=== PATIENT | female | born 1995 | race African-American/Black ===

== ENCOUNTER 2021-12-12 16:34 | Emergency (ER) | payer BC ==
[2021-12-12 17:07] VITALS: RESP 16; TEMP 98.2
[2021-12-12] MEDS ORDERED: ONDANSETRON 4 MG/2 ML VIAL IVP STA (19:29)
[2021-12-12] MEDS ORDERED: SODIUM CHLORIDE 0.9% 1,000 ML IV STA ×2 (19:30)
--- NOTE | 2021-12-12 19:34 | ED ---
General Adult HPI - General Chief complaint: Nausea/Vomiting/Diarrhea Stated complaint: , nausea & vomiting Time Seen by Provider: 12/12/21 19:00 Source: patient, RN notes reviewed Mode of arrival: ambulatory Limitations: no limitations - History of Present Illness Initial comments: 26-year-old female presents to the emergency department for evaluation of nausea and vomiting. Patient states she is 8 weeks , LMP 10/21/2021, . Reports daily vomiting since she 7 weeks. Hasn't taken anything to treat her symptoms. Reports dizziness with position change. Was seen by her OB for initial evaluation. Denies fever, chills, headache, chest pain, shortness of breath, abdominal pain, diarrhea, dysuria or hematuria. No cramping, bleeding, or leaking of fluids. - Related Data Home Medications Medication Instructions Recorded Confirmed Acetaminophen Tab [Tylenol Tab] 1,000 mg PO Q6H PRN 12/12/21 12/12/21 Agm-Vvlu-Woudq Acid 1 cap PO DAILY 12/12/21 12/12/21 [-U Capsule (formulary)] Allergies Allergy/AdvReac Type Severity Reaction Status Date / Time No Known Allergies Allergy Verified 12/12/21 20:47 Review of Systems ROS Statement: Those systems with pertinent positive or pertinent negative responses have been documented in the HPI. ROS Other: All systems not noted in ROS Statement are negative. Past Medical History Past Medical History: No Reported History History of Any Multi-Drug Resistant Organisms: None Reported Past Surgical History: No Surgical Hx Reported Past Psychological History: No Psychological Hx Reported Smoking Status: Never smoker Past Alcohol Use History: None Reported Past Drug Use History: None Reported General Exam Limitations: no limitations (Well-developed, well-nourished female in no acute distress. Initial temperature 98.2, pulse 91, respiration 16, blood pressure 152/86, pulse ox 100% on room air.) General appearance: alert, in no apparent distress Eye exam: Present: normal appearance, PERRL. Absent: scleral icterus, conjunctival injection ENT exam: Present: normal oropharynx, mucous membranes moist Neck exam: Present: normal inspection, full ROM. Absent: tenderness, lymphadenopathy Respiratory exam: Present: normal lung sounds bilaterally. Absent: respiratory distress, wheezes, rales, rhonchi, stridor Cardiovascular Exam: Present: regular rate, normal rhythm, normal heart sounds. Absent: systolic murmur, diastolic murmur, rubs, gallop, clicks GI/Abdominal exam: Present: soft, normal bowel sounds. Absent: distended, tenderness, guarding, rebound, rigid Back exam: Absent: CVA tenderness (R), CVA tenderness (L) Neurological exam: Present: alert, oriented X3 Psychiatric exam: Present: normal affect, normal mood Skin exam: Present: warm, dry, intact, normal color Course Vital Signs 12/12/21 12/12/21 17:05 21:07 Temperature 98.2 F Pulse Rate 91 70 Respiratory 16 16 Rate Blood Pressure 152/86 125/88 O2 Sat by Pulse 100 99 Oximetry - Reevaluation(s) Reevaluation #1: 12/12/21 21:17 Upon reevaluation, patient is resting more comfortably reports significant improvement in her nausea. Discussed discharge plan and further follow-up. Patient verbalizes understanding and agrees with this plan. Medical Decision Making - Medical Decision Making 26-year-old female with no significant past medical history presents to the emergency department for evaluation of nausea and vomiting. Patient is 8 weeks , . Upon exam, patient appears to be feeling poorly though is not actively vomiting at this time. Physical exam findings are unremarkable. Mucous membranes are moist and patient is able to tolerate some sips of water. She is not experiencing any abdominal cramping or vaginal bleeding/leaking of fluids. IV access was obtained, patient was given fluids and Zofran for nausea. Laboratory studies were reviewed, patient is mildly hyponatremic with a sodium of 133. Urinalysis does show 1+ ketones. Patient is scheduled to see her DIRECTOR PUBLIC this week. Discussed vitamin B6 and Unisom combination for nausea, patient states this has been suggested to her, but she has yet implemented. Has tried chyna supplements with no significant improvement. Also suggested lemon or peppermint as these have both been shown to improve nausea in . Patient is encouraged to eat small, frequent meals and focus on hydration possibly supplementing with electrolyte solutions as able. She is instructed to follow-up with her DIRECTOR PUBLIC as scheduled. Return parameters were discussed in detail. Patient verbalizes understanding and agrees with this plan. Attending: Talia. - Lab Data Result diagrams: 12/12/21 19:30 12/12/21 19:30 Lab Results 12/12/21 12/12/21 12/12/21 Range/Units 19:30 19:30 19:30 WBC 11.2 H (3.8-10.6) k/uL RBC 4.72 (3.80-5.40) m/uL Hgb 12.9 (11.4-16.0) gm/dL Hct 40.1 (34.0-46.0) % MCV 85.0 (80.0-100.0) fL MCH 27.4 (25.0-35.0) pg MCHC 32.2 (31.0-37.0) g/dL RDW 14.5 (11.5-15.5) % Plt Count 287 (150-450) k/uL MPV 8.2 Neutrophils % 68 % Lymphocytes % 26 % Monocytes % 4 % Eosinophils % 1 % Basophils % 0 % Neutrophils # 7.6 (1.3-7.7) k/uL Lymphocytes # 2.9 (1.0-4.8) k/uL Monocytes # 0.5 (0-1.0) k/uL Eosinophils # 0.1 (0-0.7) k/uL Basophils # 0.0 (0-0.2) k/uL Sodium 133 L (137-145) mmol/L Potassium 3.9 (3.5-5.1) mmol/L Chloride 104 (98-107) mmol/L Carbon Dioxide 19 L (22-30) mmol/L Anion Gap 10 mmol/L BUN 8 (7-17) mg/dL Creatinine 0.61 (0.52-1.04) mg/dL Est GFR (CKD-EPI)AfAm >90 (>60 ml/min/1.73 sqM) Est GFR (CKD-EPI)NonAf >90 (>60 ml/min/1.73 sqM) Glucose 90 (74-99) mg/dL Calcium 9.0 (8.4-10.2) mg/dL Total Bilirubin 0.9 (0.2-1.3) mg/dL AST 22 (14-36) U/L ALT 13 (4-34) U/L Alkaline Phosphatase 64 (38-126) U/L Total Protein 7.0 (6.3-8.2) g/dL Albumin 3.9 (3.5-5.0) g/dL Urine Color Yellow Urine Appearance Clear (Clear) Urine pH 5.0 (5.0-8.0) Ur Specific [place] 1.026 (1.001-1.035) Urine Protein Negative (Negative) Urine Glucose (UA) Negative (Negative) Urine Ketones 1+ H (Negative) Urine Blood Negative (Negative) Urine Nitrite Negative (Negative) Urine Bilirubin Negative (Negative) Urine Urobilinogen <2.0 (<2.0) mg/dL Ur Leukocyte Esterase Negative (Negative) Disposition Clinical Impression: Nausea and vomiting during Disposition: HOME SELF-CARE Condition: Stable Instructions (If sedation given, give patient instructions): Nausea and Vomiting in (ED) Additional Instructions: Consider electrolyte solutions such as Gatorade or Powerade Eat small more frequent meals WITH less volume. Lemon, peppermint, and chyna are supplements known to help with nausea and vomiting in . Unasom and Vitamin B-6 is also a helpful combination, but most likely will cause drowsiness. Follow-up with your DIRECTOR PUBLIC for a recheck. Call the office in the morning to schedule an appointment. Return to the emergency department with any new, worsening, or concerning symptoms. Is patient prescribed a controlled substance at d/c from ED?: No Referrals: Nonstaff,Physician [Primary Care Provider] - 1-2 days Time of Disposition: 21:18
[2021-12-12 19:45] LABS: Appearance,Urine Clear (Clear); Bilirubin,Urine Negative (Negative); Blood,Urine Negative (Negative); Color,Urine Yellow; Glucose,Urine (UA) Negative (Negative); Ketones,Urine 1+ (Negative); Leukocyte Esterase,Urine Negative (Negative); Nitrite,Urine Negative (Negative); Protein,Urine Negative (Negative); Specific Gravity,Urine 1.026 (1.001-1.035); Urobilinogen,Urine <2.0 mg/dL (<2.0)
[2021-12-12 19:46] LABS: Basophils % (A) 0 %; Eosinophils # (A) 0.1 k/uL (0-0.7); Eosinophils % (A) 1 %; HCT 40.1 % (34.0-46.0); HGB 12.9 gm/dL (11.4-16.0); Lymphocytes # (A) 2.9 k/uL (1.0-4.8); Lymphocytes % (A) 26 %; MCH 27.4 pg (25.0-35.0); MCHC 32.2 g/dL (31.0-37.0); Mean Platelet Volume 8.2; Monocytes # (A) 0.5 k/uL (0-1.0); Monocytes % (A) 4 %; Neutrophils # (A) 7.6 k/uL (1.3-7.7); Neutrophils % (A) 68 %; Platelet Count 287 k/uL (150-450); RBC 4.72 m/uL (3.80-5.40); RDW 14.5 % (11.5-15.5); WBC 11.2 k/uL (3.8-10.6)
[2021-12-12 20:34] LABS: ALT 13 U/L (4-34); AST 22 U/L (14-36); African American GFR (CKD) >90 (>60 ml/min/1.73 sqM); Albumin 3.9 g/dL (3.5-5.0); Alkaline Phosphatase 64 U/L (38-126); Anion Gap 10 mmol/L; Blood Urea Nitrogen 8 mg/dL (7-17); Carbon Dioxide 19 mmol/L (22-30); Chloride 104 mmol/L (98-107); Glucose 90 mg/dL (74-99); Non-African American GFR(CKD) >90 (>60 ml/min/1.73 sqM); Potassium 3.9 mmol/L (3.5-5.1); Sodium 133 mmol/L (137-145); Total Bilirubin 0.9 mg/dL (0.2-1.3)
[2021-12-12] MEDS ORDERED: ONDANSETRON 4 MG ODT STARTER PACK 2 TAB BTL PO STA (21:16)
[2021-12-12 21:23] VITALS: BP 125/88; PULSE 70
== END 2021-12-12 21:49 | disposition home or self-care (01) ==
LOC: EC 16:34
DX: O21.9 Vomiting of pregnancy, unspecified (principal); Z3A.08 8 weeks gestation of pregnancy
CPT/HCPCS: 36415; 80053; 85025; 81003; 99284; 96374; 96361; J2405

== ENCOUNTER 2022-01-08 14:14 | Emergency (ER) | payer BC ==
[2022-01-08 14:37] VITALS: BP 152/92; PULSE 131; RESP 18; TEMP 100
--- NOTE | 2022-01-08 15:17 | ED ---
Female Urogenital HPI - General Chief complaint: Vaginal Bleeding Stated complaint: 11 weeks Preg., Bleeding Time Seen by Provider: 01/08/22 14:59 Source: patient, family, RN notes reviewed Mode of arrival: ambulatory Limitations: no limitations - History of Present Illness Initial comments: This is a 26-year-old female who presents to emergency department for vaginal bleeding. One hour before coming to the emergency department she had what she describes as a period. This occurred only once and has since discontinued. Denies any pain with bleeding. She saw her statuary painter 2 days ago, and at that point, there were no problems with the . Early on in the , she had light brown discharge, but has otherwise not had any issues with bleeding. She has not yet had a ultrasound. Denies any fevers, chills, burning with urination, nausea, vomiting, or otherwise feeling ill. She has an appointment tomorrow for lab work. Complaint: vaginal bleeding Patient : Yes Number of weeks : 11 - Related Data Home Medications Medication Instructions Recorded Confirmed Acetaminophen Tab [Tylenol Tab] 1,000 mg PO Q6H PRN 12/12/21 01/08/22 Dsg-Hqxw-Jssir Acid 1 cap PO DAILY 12/12/21 01/08/22 [-U Capsule (formulary)] Allergies Allergy/AdvReac Type Severity Reaction Status Date / Time No Known Allergies Allergy Verified 01/08/22 15:42 Review of Systems ROS Statement: Those systems with pertinent positive or pertinent negative responses have been documented in the HPI. ROS Other: All systems not noted in ROS Statement are negative. Constitutional: Denies: fever, chills ENT: Denies: ear pain, throat pain Respiratory: Denies: cough Cardiovascular: Denies: chest pain Gastrointestinal: Denies: abdominal pain, nausea, vomiting, diarrhea Genitourinary: Reports: other (vaginal bleeding). Denies: urgency, dysuria Skin: Denies: rash Neurological: Denies: headache Past Medical History Past Medical History: No Reported History History of Any Multi-Drug Resistant Organisms: None Reported Past Surgical History: No Surgical Hx Reported Past Psychological History: No Psychological Hx Reported Smoking Status: Never smoker Past Alcohol Use History: None Reported Past Drug Use History: None Reported General Exam Limitations: no limitations General appearance: alert, in no apparent distress Head exam: Present: atraumatic, normocephalic, normal inspection Neck exam: Present: normal inspection. Absent: tenderness, meningismus, lymphadenopathy Respiratory exam: Present: normal lung sounds bilaterally. Absent: respiratory distress, wheezes, rales, rhonchi, stridor Cardiovascular Exam: Present: regular rate, normal rhythm, normal heart sounds. Absent: systolic murmur, diastolic murmur, rubs, gallop, clicks GI/Abdominal exam: Present: soft, normal bowel sounds Expanded Female exam: Absent: tissue present in vagina External exam: Present: normal Speculum exam: Present: cervical OS closed, other (minimal blood in the vaginal vault) Neurological exam: Present: alert, oriented X3, CN II-XII intact Psychiatric exam: Present: normal affect, normal mood Skin exam: Present: warm, dry, intact, normal color. Absent: rash Course Vital Signs 01/08/22 14:34 Temperature 100 F H Pulse Rate 131 H Respiratory 18 Rate Blood Pressure 152/92 O2 Sat by Pulse 99 Oximetry Medical Decision Making - Medical Decision Making This is a 26-year-old female who presents to the emergency department for vaginal bleeding. Vaginal ultrasound revealed a viable intrauterine with a heart rate of 169 bpm. Patient had a temperature fluctuating between 99- 100F. While this is not necessarily considered febrile and it may be due to her stressful situation, she was given 650 mg of Tylenol to be safe. Patient's blood type is O+ and no rhogam is indicated. She is advised to follow up with her lab work as scheduled tomorrow and call her statuary painter's office for a follow up appointment. Bleeding due to subchorionic hematoma. Bleeding precautions discussed including resting, avoiding strenuous activity, avoiding sexual intercourse, tampons, and douching. Return precautions reviewed in depth, the patient is instructed to return to the emergency department with any new, worsening, or concerning symptoms. Patient verbalized understanding. This case was discussed in detail with the attending ED physician. Presentation, findings, and treatment plan discussed in detail as well. - Lab Data Result diagrams: 01/08/22 15:11 01/08/22 15:11 Lab Results 01/08/22 01/08/22 01/08/22 Range/Units 15:11 15:11 15:11 WBC 11.0 H (3.8-10.6) k/uL RBC 4.95 (3.80-5.40) m/uL Hgb 13.3 (11.4-16.0) gm/dL Hct 43.3 (34.0-46.0) % MCV 87.5 (80.0-100.0) fL MCH 27.0 (25.0-35.0) pg MCHC 30.8 L (31.0-37.0) g/dL RDW 13.7 (11.5-15.5) % Plt Count 279 (150-450) k/uL MPV 8.0 Neutrophils % 75 % Lymphocytes % 18 % Monocytes % 5 % Eosinophils % 1 % Basophils % 0 % Neutrophils # 8.3 H (1.3-7.7) k/uL Lymphocytes # 1.9 (1.0-4.8) k/uL Monocytes # 0.5 (0-1.0) k/uL Eosinophils # 0.1 (0-0.7) k/uL Basophils # 0.0 (0-0.2) k/uL Sodium 134 L (137-145) mmol/L Potassium 4.1 (3.5-5.1) mmol/L Chloride 104 (98-107) mmol/L Carbon Dioxide 21 L (22-30) mmol/L Anion Gap 9 mmol/L BUN 9 (7-17) mg/dL Creatinine 0.66 (0.52-1.04) mg/dL Est GFR (CKD-EPI)AfAm >90 (>60 ml/min/1.73 sqM) Est GFR (CKD-EPI)NonAf >90 (>60 ml/min/1.73 sqM) Glucose 96 (74-99) mg/dL Calcium 9.1 (8.4-10.2) mg/dL Total Bilirubin 0.9 (0.2-1.3) mg/dL AST 24 (14-36) U/L ALT 12 (4-34) U/L Alkaline Phosphatase 60 (38-126) U/L Total Protein 7.4 (6.3-8.2) g/dL Albumin 4.0 (3.5-5.0) g/dL HCG, Quant 46038.9 mIU/mL Urine Color Light Yellow Urine Appearance Clear (Clear) Urine pH 5.5 (5.0-8.0) Ur Specific [place] 1.005 (1.001-1.035) Urine Protein Negative (Negative) Urine Glucose (UA) Negative (Negative) Urine Ketones Negative (Negative) Urine Blood Small H (Negative) Urine Nitrite Negative (Negative) Urine Bilirubin Negative (Negative) Urine Urobilinogen <2.0 (<2.0) mg/dL Ur Leukocyte Esterase Negative (Negative) Urine RBC <1 (0-5) /hpf Urine WBC 1 (0-5) /hpf Ur Squamous Epith Cells 1 (0-4) /hpf Urine Bacteria Rare H (None) /hpf Urine Mucus Rare H (None) /hpf Coronavirus (PCR) (Not Detectd) Influenza Type A RNA (Not Detectd) Influenza Type B (PCR) (Not Detectd) Blood Type Blood Type Recheck Bld Type Recheck Status 01/08/22 01/08/22 01/08/22 Range/Units 15:11 15:11 15:16 WBC (3.8-10.6) k/uL RBC (3.80-5.40) m/uL Hgb (11.4-16.0) gm/dL Hct (34.0-46.0) % MCV (80.0-100.0) fL MCH (25.0-35.0) pg MCHC (31.0-37.0) g/dL RDW (11.5-15.5) % Plt Count (150-450) k/uL MPV Neutrophils % % Lymphocytes % % Monocytes % % Eosinophils % % Basophils % % Neutrophils # (1.3-7.7) k/uL Lymphocytes # (1.0-4.8) k/uL Monocytes # (0-1.0) k/uL Eosinophils # (0-0.7) k/uL Basophils # (0-0.2) k/uL Sodium (137-145) mmol/L Potassium (3.5-5.1) mmol/L Chloride (98-107) mmol/L Carbon Dioxide (22-30) mmol/L Anion Gap mmol/L BUN (7-17) mg/dL Creatinine (0.52-1.04) mg/dL Est GFR (CKD-EPI)AfAm (>60 ml/min/1.73 sqM) Est GFR (CKD-EPI)NonAf (>60 ml/min/1.73 sqM) Glucose (74-99) mg/dL Calcium (8.4-10.2) mg/dL Total Bilirubin (0.2-1.3) mg/dL AST (14-36) U/L ALT (4-34) U/L Alkaline Phosphatase (38-126) U/L Total Protein (6.3-8.2) g/dL Albumin (3.5-5.0) g/dL HCG, Quant mIU/mL Urine Color Urine Appearance (Clear) Urine pH (5.0-8.0) Ur Specific [place] (1.001-1.035) Urine Protein (Negative) Urine Glucose (UA) (Negative) Urine Ketones (Negative) Urine Blood (Negative) Urine Nitrite (Negative) Urine Bilirubin (Negative) Urine Urobilinogen (<2.0) mg/dL Ur Leukocyte Esterase (Negative) Urine RBC (0-5) /hpf Urine WBC (0-5) /hpf Ur Squamous Epith Cells (0-4) /hpf Urine Bacteria (None) /hpf Urine Mucus (None) /hpf Coronavirus (PCR) Not Detected (Not Detectd) Influenza Type A RNA Not Detected (Not Detectd) Influenza Type B (PCR) Not Detected (Not Detectd) Blood Type O Positive Blood Type Recheck No Previous Record Bld Type Recheck Status ABR ONLY - Radiology Data Radiology results: report reviewed, image reviewed Disposition Clinical Impression: Subchorionic hematoma in first trimester Disposition: HOME SELF-CARE Instructions (If sedation given, give patient instructions): Non-Threatening First Trimester Vaginal Bleed (ED) Additional Instructions: Return to the emergency department with any new, worsening, or concerning symptoms. Get plenty of rest, drink fluids, avoid strenuous activity, sexual intercourse, using tampons, or douching. Contact your statuary painter's office tomorrow for a follow-up appointment. Follow-up with your primary care provider in 1 to 2 days. Is patient prescribed a controlled substance at d/c from ED?: No Referrals: Nonstaff,Physician [REFERRING] - 1-2 days
[2022-01-08 15:34] LABS: Basophils % (A) 0 %; Eosinophils # (A) 0.1 k/uL (0-0.7); Eosinophils % (A) 1 %; HCT 43.3 % (34.0-46.0); HGB 13.3 gm/dL (11.4-16.0); Lymphocytes # (A) 1.9 k/uL (1.0-4.8); Lymphocytes % (A) 18 %; MCHC 30.8 g/dL (31.0-37.0); MCV 87.5 fL (80.0-100.0); Monocytes # (A) 0.5 k/uL (0-1.0); Monocytes % (A) 5 %; Neutrophils # (A) 8.3 k/uL (1.3-7.7); Neutrophils % (A) 75 %; Platelet Count 279 k/uL (150-450); RBC 4.95 m/uL (3.80-5.40); RDW 13.7 % (11.5-15.5)
--- NOTE | 2022-01-08 15:39 | US ---
EXAMINATION TYPE: Transabdominal DATE OF EXAM: 01/08/2022 3:27 PM COMPARISON: NONE CLINICAL HISTORY: Vaginal bleeding. Spotting x 1 day EXAM PERFORMED: Transabdominal (TA) EXAM MEASUREMENTS: GESTATIONAL AGE / DATING Physician Established: (11 weeks/2 days) EDC: 07/28/2022 Dates by LMP: LMP unknown Dates by First Scan: No previous this is first scan Dates by Current Scan for: (11 weeks/5 days) EDC: 07/25/2022 MATERNAL ANATOMY Uterus: 15.3 x 6.8 x 8.0cm Right Ovary: 2.3 x 1.5 x 2.3cm Left Ovary: 2.7 x 1.8 x 2.5cm Post CDS / Adnexa: wnl Presence of free fluid: no Presence of corpus luteal cyst: not seen Presence of subchorionic bleed: 1.9 x 0.8 x 2.2cm inferior to gestational sac GESTATION / SURVEY CRL: 4.9cm (11 weeks/5 days) Yolk Sac (normal less than 6mm): 3.8mm Heart Rate: 169 bpm Rhythm: Normal IUP: Viable IUP Nuchal Translucency 10-14wks (normal less than 3mm): 1.6mm IMPRESSION: 1. Single intrauterine gestation estimated at 11 weeks 5 days gestation based on crown-rump length. C ardiac activity measures 169 beats minute was observed. The study.
[2022-01-08 15:42] LABS: ALT 12 U/L (4-34); AST 24 U/L (14-36); African American GFR (CKD) >90 (>60 ml/min/1.73 sqM); Alkaline Phosphatase 60 U/L (38-126); Anion Gap 9 mmol/L; Blood Urea Nitrogen 9 mg/dL (7-17); Calcium 9.1 mg/dL (8.4-10.2); Carbon Dioxide 21 mmol/L (22-30); Chloride 104 mmol/L (98-107); Glucose 96 mg/dL (74-99); Non-African American GFR(CKD) >90 (>60 ml/min/1.73 sqM); Potassium 4.1 mmol/L (3.5-5.1); Sodium 134 mmol/L (137-145); Total Bilirubin 0.9 mg/dL (0.2-1.3); Total Protein 7.4 g/dL (6.3-8.2)
[2022-01-08] MEDS ORDERED: ACETAMINOPHEN TAB 325 MG TAB PO STA (15:50)
[2022-01-08 16:55] LABS: Appearance,Urine Clear (Clear); Bacteria,Urine Rare /hpf; Bilirubin,Urine Negative (Negative); Blood,Urine Small (Negative); Color,Urine Light Yellow; Glucose,Urine (UA) Negative (Negative); Ketones,Urine Negative (Negative); Leukocyte Esterase,Urine Negative (Negative); Mucus,Urine Rare /hpf; Nitrite,Urine Negative (Negative); PH, Urine 5.5 (5.0-8.0); Protein,Urine Negative (Negative); RBC,Urine <1 /hpf (0-5); Specific Gravity,Urine 1.005 (1.001-1.035); Squamous Epithelial Cell,Urine 1 /hpf (0-4); Urobilinogen,Urine <2.0 mg/dL (<2.0); WBC,Urine 1 /hpf (0-5)
[2022-01-08 16:59] LABS: HCG,Quantitative Serum 67867.9 mIU/mL
== END 2022-01-08 17:17 | disposition home or self-care (01) ==
LOC: EC 14:14
DX: O46.91 Antepartum hemorrhage, unspecified, first trimester (principal); Z3A.11 11 weeks gestation of pregnancy
CPT/HCPCS: 36415; 76801; 80053; 81001; 84702; 85025; 86900; 86901; 87502; 87635; 99284

== ENCOUNTER → 2022-01-23 | Outpatient (CLI) | payer BC, OTHER ==
--- NOTE | 2022-01-23 14:28 | US ---
EXAMINATION TYPE: Transabdominal DATE OF EXAM: 01/23/2022 1:46 PM COMPARISON: Ultrasound 15 days ago. CLINICAL HISTORY: O36.61X0 LARGE FOR DATES. Large for dates. EXAM PERFORMED: Transabdominal (TA) EXAM MEASUREMENTS: GESTATIONAL AGE / DATING Physician Established: (13 weeks/3 days) EDC: 07/28/2022 Dates by LMP: (13 weeks/3 days) EDC: 07/28/2022 Dates by First Scan: (13 weeks/3 days) EDC: 07/28/2022 Dates by Current Scan for: (13 weeks/6 days) EDC: 07/25/2022 MATERNAL ANATOMY Uterus: 16.0 x 9.4 x 9.9 cm Hypoechoic area seen measuring 4.5 x 3.5 x 4.1 cm. Right Ovary: 2.8 x 1.5 x 2.7 cm Left Ovary: 3.5 x 2.1 x 2.9 cm Post CDS / Adnexa: wnl Presence of free fluid: no Presence of corpus luteal cyst: no Presence of subchorionic bleed: no GESTATION / SURVEY CRL: 7.77 cm (13 weeks/6 days) Heart Rate: 143 bpm Rhythm: Normal IUP: Viable IUP Beta HcG (if available): Not available at this time Single live intrauterine gestation is redemonstrated. Satisfactory interval growth noted. No free flu id in the pelvis. Both ovaries redemonstrated without suspicious extra ovarian adnexal mass. IMPRESSION: As above.
== END | disposition home or self-care (01) ==
LOC: RADUSWWP 13:15
PROVIDERS: ATTEND Obstetrics & Gynecology Obstetrics
DX: O36.61X0 Maternal care for excessive fetal growth, first trimester, not applicable or unspecified (principal); Z3A.13 13 weeks gestation of pregnancy
CPT/HCPCS: 76801

== ENCOUNTER → 2022-05-06 | Outpatient (CLI) | payer OTHER ==
[2022-05-06 18:23] LABS: HCT 35.4 % (37.2-46.3); HGB 11.4 g/dL (12.0-15.0); MCH 27.5 pg (27.0-32.0); MCHC 32.2 g/dL (32.0-37.0); MCV 85.5 fL (80.0-97.0); Mean Platelet Volume 11.6 fL (9.5-12.2); NRBC Per 100 WBC 0 /100 WBCS (0.0-0.0); Platelet Count 260 X 10*3/uL (140-440); RBC 4.14 X 10*6/uL (4.10-5.20); RDW 13.3 % (11.5-14.5); WBC 9.89 X 10*3/uL (4.50-10.00)
== END | disposition home or self-care (01) ==
LOC: LABWHC1 10:30
PROVIDERS: ATTEND Obstetrics & Gynecology Obstetrics
DX: Z36.9 Encounter for antenatal screening, unspecified (principal)
CPT/HCPCS: 36415; 82950; 85027

== ENCOUNTER 2022-07-15 03:33 | Outpatient (CLI) | payer OTHER ==
[2022-07-15 05:13] VITALS: BP 122/70; PULSE 92; RESP 18; TEMP 97.3
--- NOTE | 2022-07-22 19:50 | P.MSEPDOC ---
Presenting Problems - Arrival Data Date of Arrival on Unit: 07/15/22 Time of Arrival on Unit: 03:27 Mode of Transport: Wheelchair - Complaint OB-Reason for Admission/Chief Complaint: Possible Onset of Labor, Pain Medical History - Information : 1 Para: 0 Term: 0 : 0 Abortions: Spontaneous or Elective: 0 Number of Living Children: 0 - Gestational Age Gestational Age by HORTENCIA (wks/days): 38 Weeks and 1 Days - History Comment: Trichimoniasis Review of Systems - Review of Systems Constitutional: No problems Breast: No problems ENT: No problems Cardiovascular: No problems Respiratory: No problems Gastrointestinal: No problems Genitourinary: No problems Musculoskeletal: No problems Neurological: No problems Skin: No problems Vital Signs - Temperature Temperature: 97.3 F Temperature Source: Oral - Pulse Pulse Oximetery Pulse Rate: 92 Pulse Assessment Method: Pulse Oximetry - Respirations Respiratory Rate: 18 Oxygen Delivery Method: Room Air O2 Sat by Pulse Oximetry: 99 - Blood Pressure Right Arm Blood Pressure: 122/70 Blood Pressure Mean: 87 Blood Pressure Source: Automatic Cuff Medical Screen Scoring - Cervical Exam Dilation (cm): 1 Effacement (%): 50 Station: -2 Membranes: Intact - Uterine Contractions Frequency From (mins): 2 Frequency To (mins): 6 Duration From (seconds): 60 Duration To (seconds): 80 Intensity: Strong Resting: Soft to palpation - Assessment - Baby A Baseline FHR: 145 Heart Rate - NICHD Category: Category I (Normal) NST: Reactive Physician Notification - Physician Notified Physician Notified Date: 07/15/22 Physician Notified Time: 04:50 Physician: Stefani Chavez New Order Received: Yes - Notification Comment Comment: Called Dr. Chavez and reported on patients c/o contractions since 1999 on 07/14/22. GA 38.5, HORTENCIA 07/28/2022, . Pain with contractions 05/07. FHR 145 with accels and reactive NST. Contractions 2-6 minutes apart 60-80 seconds. Cervical exam is 1/50%/-2. Orders to discharge patient at this time. Maternal Triage Index - Maternal Triage Index Presenting for scheduled procedure w/no complaint: No - Stat/Priority 1 Stat Priority 1: No - Urgent/Priority 2 Urgent Priority 2: No - Prompt/Priority 3 Prompt Priority 3: No - Non-Urgent/Priority 4 Non-Urgent Priority 4: Yes Criteria Met for Priority 4: Called Dr. Chavez and reported on patients c/o contractions since 1999 on 07/14/22. GA 38.5, HORTENCIA 07/28/2022, . Pain with contractions 05/07. FHR 145 with accels and reactive NST. Contractions 2-6 minutes apart 60-80 seconds. Cervical exam is 1/50%/-2. Orders to discharge patient at this time. Disposition - Disposition OB Disposition: Discharge to home Discharge Date: 07/15/22 Discharge Time: 04:55 I agree with the RN Medical Screening Exam: Yes Physician's MSE Comment: I have neither seen nor examined the patient Case reviewed; plan agreed upon as documented in EMR&OBIX.: Yes Diagnosis: RELATED CONDITIONS, UNSPECIFIED, THIRD TRIMESTER
== END 2022-07-15 05:00 | disposition home or self-care (01) ==
LOC: FBPOP 03:33
PROVIDERS: ATTEND Obstetrics & Gynecology
DX: O26.93 Pregnancy related conditions, unspecified, third trimester (principal); Z3A.38 38 weeks gestation of pregnancy
CPT/HCPCS: 59025; G0463; 99213

== ENCOUNTER 2022-07-22 11:55 | Inpatient (IN) | payer OTHER ==
[2022-07-22] MEDS ORDERED: ACETAMINOPHEN IV (For NPO) 1,000 MG in EMPTY BAG 1 BAG IVPB STA (13:01)
[2022-07-22] MEDS: LACTATED RINGERS 1,000 ML IV SCH ×2 (13:20→16:32)
[2022-07-22] MEDS ORDERED: AMPICILLIN 2,000 MG in SODIUM CHLORIDE 0.9% 100 ML IVPB STA (15:17)
[2022-07-22] MEDS ORDERED: OXYTOCIN 10 UNIT/ML 1 ML VIAL IM PRN (15:17)
[2022-07-22] MEDS ORDERED: TERBUTALINE 1 MG/ML VIAL SQ PRN (15:17)
[2022-07-22] MEDS ORDERED: LIDOCAINE 0.5% (PF) 5 MG/ML (50 ML SDV) SQ PRN (15:17)
[2022-07-22] MEDS ORDERED: METHYLERGONOVINE 0.2 MG/ML 1 ML AMP IM PRN (15:17)
[2022-07-22] MEDS ORDERED: CARBOPROST TROMETHAMINE 250 MCG/ML 1 ML AMP IM PRN (15:17)
[2022-07-22 15:29] LABS: Basophils % (A) 0 %; Eosinophils % (A) 0 %; HCT 38.5 % (34.0-46.0); HGB 12.7 gm/dL (11.4-16.0); Lymphocytes % (A) 21 %; MCH 27.6 pg (25.0-35.0); MCV 83.5 fL (80.0-100.0); Monocytes # (A) 0.5 k/uL (0-1.0); Monocytes % (A) 5 %; Neutrophils # (A) 7.2 k/uL (1.3-7.7); Neutrophils % (A) 73 %; Platelet Count 251 k/uL (150-450); RBC 4.61 m/uL (3.80-5.40); RDW 13.3 % (11.5-15.5); WBC 9.8 k/uL (3.8-10.6)
[2022-07-22] MEDS ORDERED: OXYTOCIN 30 UNITS/500 ML NS 30 UNIT in SALINE 1 500ML.BAG IV SCH (15:30)
[2022-07-22] MEDS: BUTORPHANOL 1 MG/ML 1 ML VIAL IV PRN ×2 (16:07→18:43)
[2022-07-22] MEDS: AMPICILLIN 1,000 MG in SODIUM CHLORIDE 0.9% 50 ML IVPB SCH (20:41)
[2022-07-22] MEDS ORDERED: ROPIVACAINE 100 MG, fentaNYL (PF). 200 MCG in SODIUM CHLORIDE 0.9% 76 ML EPIDURAL ONE (21:12)
[2022-07-23] MEDS: AMPICILLIN 1,000 MG in SODIUM CHLORIDE 0.9% 50 ML IVPB SCH ×3 (03:32→20:18)
[2022-07-23] MEDS: LACTATED RINGERS 1,000 ML IV SCH ×6 (04:40→20:18)
--- NOTE | 2022-07-23 08:50 | P.HPOB ---
History of Present Illness H&P Date: 07/22/22 Chief Complaint: IUP at 39 weeks, labor This is a 26-year-old 1 para 0 that presented to the office for routine visit. Patient states that she was up throughout the night with complaints of coming and going back pain. Patient on exam was noted to be gato. Patient was sent to labor and delivery for observation. Initially patient was noted to be 1/70/-3 station, bulging bag of water was appreciated. Well on labor and delivery after multiple hours she was noted to change to 3 cm. Patient was admitted at that time. Patient was receiving routine care with myself which is been essentially uncomplicated. Patient did note at the beginning of care a history of hypertension although she was not on medications and has had normal blood pressures throughout the . On bloodwork this patient has a blood type of O+, rubella status immune, hep Dee surface antigen negative, HIV negative, RPR is nonreactive, gr oup beta strep cultures were positive. Review of Systems Constitutional: Denies chills, Denies fatigue, Denies fever Ears, nose, mouth and throat: Denies headache Cardiovascular: Reports leg edema Respiratory: Denies dyspnea Gastrointestinal: Denies constipation, Denies diarrhea, Denies nausea, Denies vomiting Genitourinary: Reports Past Medical History Past Medical History: No Reported History History of Any Multi-Drug Resistant Organisms: None Reported Past Surgical History: No Surgical Hx Reported Past Psychological History: No Psychological Hx Reported Smoking Status: Current every day smoker Past Alcohol Use History: None Reported Past Drug Use History: None Reported Medications and Allergies Home Medications Medication Instructions Recorded Confirmed Type Vit No.179/Iron/Folic 1 each PO DAILY 07/22/22 07/22/22 History [ Tablet] Allergies Allergy/AdvReac Type Severity Reaction Status Date / Time No Known Allergies Allergy Verified 07/15/22 03:40 Exam Osteopathic Statement: *. No significant issues noted on an osteopathic structural exam other than those noted in the History and Physical/Consult. 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 Patient has noted nonlabored breathing, heart has a regular rate and rhythm, abdomen is gravid, on cervical exam per RN she was 3/70/-2 station, heart tones returned be category 1 and she is gato every 3-5 minutes. Results Result Diagrams: 07/22/22 15:17 Assessment and Plan (1) Term Current Visit: Yes Status: Acute Code(s): Z34.90 - ENCNTR FOR SUPRVSN OF NORMAL , UNSP, UNSP TRIMESTER SNOMED Code(s): 12365746 (2) Active labor Current Visit: Yes Status: Acute Code(s): PSS7566 - SNOMED Code(s): 652831105 Plan: Patient is admitted to labor and delivery for active labor. Expectant management is discussed. Given group beta strep positive cultures antibiotic prophylaxis with ampicillin was begun. Options for analgesia are discussed including Stadol, nitrous, epidural. Patient does wish epidural placement when appropriate.
[2022-07-23] MEDS ORDERED: BENZOCAINE/MENTHOL SPRAY 1 GM/SPRAY AEROSOL TOPICAL PRN (08:52)
[2022-07-23] MEDS ORDERED: ZOLPIDEM 5 MG TAB PO PRN (08:52)
[2022-07-23] MEDS ORDERED: HYDROCORTISONE 2.5% RECTAL CREAM 30 GM TUBE RECTAL PRN (08:52)
[2022-07-23] MEDS ORDERED: SIMETHICONE 80 MG CHEWABLE PO PRN (08:52)
[2022-07-23] MEDS ORDERED: diphenhydrAMINE 25 MG CAP PO PRN (08:52)
[2022-07-23] MEDS ORDERED: diphenhydrAMINE 50 MG CAP PO PRN (08:52)
[2022-07-23] MEDS ORDERED: LANOLIN CREAM 5 GM TUBE TOPICAL PRN (08:52)
[2022-07-23] MEDS ORDERED: diphenhydrAMINE 50 MG/ML 1 ML VIAL IVP PRN ×2 (08:52)
--- NOTE | 2022-07-23 08:52 | P.PROBDLV ---
Vaginal Delivery Note - . Vaginal Delivery Note: Findings were viable male delivered at 821, weight of 6 lbs. 11 oz., Apgars of 8 and 9 at one and 5 minutes respectively. 26-year-old 1 para 0 at 39 weeks of gestation presented yesterday afternoon with complaints of regular painful contractions. Patient was seen in the office and noted to be gato. Patient was then sent to OB triage for further evaluation. Patient was then deemed to be in labor with cervical change. Patient was admitted with expectant management. Patient did well overnight eventually getting an epidural. With movement the epidural did fall out and anesthesia declined replacement. Patient did opt for nitrous treatment thereafter. Patient had spontaneous rupture of membranes clear in nature on 5:30 AM. Patient made progress toward anterior lip. At that time Pitocin augmentation of labor was begun and she was anterior lip for greater than 1 hour. Patient then progressed to complete and with excellent maternal effort the infant was brought down to a presentation. With additional pushes patient delivered the head followed by the anterior/posterior shoulder and body. A loose nuchal cord was delivered through Spontaneous cry and the was placed on the maternal abdomen. After two-minute delayed the umbilical cords doubly clamped and cut. The placenta was then delivered spontaneously intact with a three-vessel cord being noted. On inspection the patient's vaginal vault a first-degree vaginal laceration was appreciated in addition to a left labial. These were instilled with lidocaine and repaired in the usual fashion. The uterus was noted be firm and below the umbilicus after drainage of bladder for approximately 100 mL of clear yellow urine. Estimated blood loss 200 mL. All counts were noted correct 2 at the end of the delivery. Patient and infant tolerated delivery well and are resting comfortably.
[2022-07-23] MEDS: BUTORPHANOL 1 MG/ML 1 ML VIAL IV PRN (08:54)
[2022-07-23] MEDS ORDERED: OXYTOCIN 30 UNITS/500 ML NS 30 UNIT in SALINE 1 500ML.BAG IV SCH (09:00)
[2022-07-23] MEDS: IBUPROFEN 600 MG TAB PO SCH ×3 (09:35→23:33)
[2022-07-23] MEDS: SENNOSIDES-DOCUSATE SODIUM 1 EACH TAB PO SCH (20:17)
[2022-07-24] MEDS: LACTATED RINGERS 1,000 ML IV SCH ×11 (00:21→20:16)
[2022-07-24] MEDS: AMPICILLIN 1,000 MG in SODIUM CHLORIDE 0.9% 50 ML IVPB SCH (00:28)
[2022-07-24] MEDS: ACETAMINOPHEN TAB 325 MG TAB PO PRN ×3 (03:15→21:12)
[2022-07-24] MEDS: IBUPROFEN 600 MG TAB PO SCH ×4 (05:12→22:41)
[2022-07-24] MEDS: SENNOSIDES-DOCUSATE SODIUM 1 EACH TAB PO SCH ×2 (08:01→20:13)
--- NOTE | 2022-07-24 08:54 | P.DS ---
Providers Date of admission: 07/22/22 14:58 Expected date of discharge: 07/24/22 Attending physician: Maine Kaye Primary care physician: Stated None - Discharge Diagnosis(es) (1) Term Current Visit: Yes Status: Acute (2) Active labor Current Visit: Yes Status: Acute (3) Status post normal vaginal delivery Current Visit: Yes Status: Acute (4) Obstetric vaginal laceration with first degree perineal laceration Current Visit: Yes Status: Acute Hospital Course: This is a 26-year-old 1 para 0 that was seen in the office for routine visit. Patient was complaining of contractions to the night and on exam was noted to be gato. Patient was sent to labor and delivery for further evaluation. Patient was then deemed to be in labor and admitted. Patient did well overnight eventually getting epidural. Patient states her epidural fell out at one point during labor, soon afterwards she had spontaneous rupture of membranes clear in nature at 5:30 AM. Patient made progress toward anterior lip. Patient was noted to have spacing of contractions therefore Pitocin augmentation of labor was begun. Patient progressed to complete and with excellent maternal effort had a normal spontaneous vaginal delivery of a viable male at 821 on 1026. Weight of 6 lbs. 11 oz. Patient did sustain a first-degree vaginal laceration which was repaired in usual fashion. Patient has done well . She is ambulating and voiding without difficulty. She is tolerating a regular diet without nausea or vomiting. She states her pain is well-controlled. She denies concerns and would like discharge home today. Patient Condition at Discharge: Good Plan - Discharge Summary New Discharge Prescriptions: No Action Vit No.179/Iron/Folic [ Tablet] 1 each PO DAILY Discharge Medication List Vit No.179/Iron/Folic [ Tablet] 1 each PO DAILY 07/22/22 [History] Follow up Appointment(s)/Referral(s): Maine Kaye DO [Doctor of Osteopathic Medicine] - 4 Weeks Patient Instructions/Handouts: Vaginal Delivery (GEN), Vaginal Delivery (DC) Discharge Disposition: HOME SELF-CARE
[2022-07-25 01:28] VITALS: TEMP 98.1
[2022-07-25] MEDS: IBUPROFEN 600 MG TAB PO SCH ×2 (03:03→09:14)
[2022-07-25 09:09] VITALS: BP 128/73; PULSE 61; RESP 16
[2022-07-25] MEDS: SENNOSIDES-DOCUSATE SODIUM 1 EACH TAB PO SCH (09:09)
--- NOTE | 2022-07-25 09:19 | P.PNOBGVD ---
Subjective - Subjective Principal diagnosis: day 2, normal spontaneous vaginal delivery Interval history: Patient is feeling well, she ended up staying an additional day secondary to jaundice diagnosis of . She is ambulating and voiding without difficulty. Pain is well-controlled. Patient reports: Reports appetite normal, Reports voiding normally, Reports pain well controlled, Reports ambulating normally : doing well (Awaiting a bilirubin level at 2 PM this afternoon) Objective - Latest Vital Signs Latest vital signs: Vital Signs Temp Pulse Resp BP Pulse Ox 07/25/22 08:00 98.1 F 61 16 128/73 98 07/25/22 00:00 98.1 F 66 18 118/82 98 07/24/22 16:00 97.9 F 76 16 125/74 Intake and Output 07/24/22 07/25/22 07/25/22 22:59 06:59 14:59 Intake Total 540 Balance 540 Intake: IV 540 Other: Voiding Method Toilet # Voids 2 - Exam Extremities: Present: normal, edema Abdomen: Present: normal appearance, soft Uterus: Present: normal, firm Assessment and Plan (1) Term Current Visit: Yes Status: Acute Code(s): Z34.90 - ENCNTR FOR SUPRVSN OF NORMAL , UNSP, UNSP TRIMESTER SNOMED Code(s): 02085481 (2) Active labor Current Visit: Yes Status: Acute Code(s): [id number] - SNOMED Code(s): 918356711 (3) Status post normal vaginal delivery Current Visit: Yes Status: Acute Code(s): EQH7618 - SNOMED Code(s): 448130149 (4) Obstetric vaginal laceration with first degree perineal laceration Current Visit: Yes Status: Acute Code(s): O70.0 - FIRST DEGREE PERINEAL LACERATION DURING DELIVERY SNOMED Code(s): 316512998 Plan: 26-year-old G1 now P1 status post normal spontaneous vaginal delivery. Patient is doing well. She did end up staying an additional day secondary to elevated bilirubin levels and the infant. Awaiting a blood draw later this afternoon. Blood draw is good she is able to go home. Discharge has been written previously. Discharge instructions were reviewed yesterday.
== END 2022-07-25 15:15 | disposition home or self-care (01) | DRG 807 ==
LOC: FBPOP 11:55 → 4FBP 14:58
PROVIDERS: ADMIT Obstetrics & Gynecology Obstetrics; ATTEND Obstetrics & Gynecology Obstetrics
PROC: 10E0XZZ Delivery of Products of Conception, External Approach (ICD-10-PCS; principal; 2022-07-23)
PROC: 0HQ9XZZ Repair Perineum Skin, External Approach (ICD-10-PCS; 2022-07-23)
PROC: 4A0HXCZ Measurement of Products of Conception, Cardiac Rate, External Approach (ICD-10-PCS; 2022-07-23)
DX: O42.92 Full-term premature rupture of membranes, unspecified as to length of time between rupture and onset of labor (principal); Z37.0 Single live birth; O69.81X0 Labor and delivery complicated by cord around neck, without compression, not applicable or unspecified; F17.210 Nicotine dependence, cigarettes, uncomplicated; O70.0 First degree perineal laceration during delivery; O99.334 Smoking (tobacco) complicating childbirth; Z3A.39 39 weeks gestation of pregnancy
CPT/HCPCS: 59025; 85025; 86850; 86900; 86901; 99213